=== PATIENT | male | born 1990 ===

== ENCOUNTER 2023-02-14 17:59 | Emergency (ER) | payer OTHER ==
[2023-02-14] MEDS ORDERED: Amoxicillin/Clavulanate K 875-125 MG Tab PO ONE (19:31)
[2023-02-14] MEDS ORDERED: Cyclobenzaprine 10 MG Tab PO ONE (19:44)
== END 2023-02-14 20:01 | disposition home or self-care (01) ==
LOC: MW.ED 17:59
DX: S16.1XXA Strain of muscle, fascia and tendon at neck level, initial encounter (principal); S09.90XA Unspecified injury of head, initial encounter; X58.XXXA Exposure to other specified factors, initial encounter; Y92.59 Other trade areas as the place of occurrence of the external cause; Y99.0 Civilian activity done for income or pay; Z79.899 Other long term (current) drug therapy
CPT/HCPCS: 70450; 72125; 99283; A9270